=== PATIENT | male | born 1985 | race Caucasian/White ===

== ENCOUNTER 2020-12-05 19:30 | Inpatient (IN) | payer OTHER ==
[2020-12-05 20:10] VITALS: BMI 40.2
[2020-12-05] MEDS ORDERED: Ondansetron ODT 4 MG TAB PO PRN (21:41)
[2020-12-05] MEDS ORDERED: Acetaminophen 325 MG TAB PO PRN (21:41)
[2020-12-05] MEDS: Nicotine 14 MG PATCH TD SCH (22:20)
[2020-12-05] MEDS: Lactated Ringer's 1,000 ML IV SCH (22:20)
[2020-12-05] MEDS: Morphine 2 MG/ML VIAL SLOW IVP PRN (22:31)
[2020-12-06] MEDS: Lactated Ringer's 1,000 ML IV SCH ×5 (05:10→20:16)
[2020-12-06] MEDS: Morphine 2 MG/ML VIAL SLOW IVP PRN ×2 (05:43→09:51)
[2020-12-06 06:28] LABS: #Eosinphils 0.4 thou/uL (0.0-0.7); #Lymphocytes 2.2 thou/uL (1.20-3.40); #Monocytes 0.6 thou/uL (0.11-0.59); #Neutrophils 2.9 thou/uL (1.40-6.50); %Basophils 0.1 % (0.0-1.0); %Eosinophils 6.3 % (0.0-10.0); %Lymphocytes 36.5 % (21.0-51.0); %Monocytes 9.4 % (0.0-10.0); %Neutrophils 47.6 % (42.0-75.0); Hemoglobin 14.7 g/dL (14.0-18.0); Mean Corpuscular HGB CONC 35.2 g/dL (32.0-36.0); Mean Corpuscular Hemoglobin 32.2 pg (27.0-31.0); Mean Corpuscular Volume 91.4 fL (78.0-98.0); Mean Platelet Volume 8.5 fL (7.4-10.4); Platelet Count 201 thou/uL (130-400); RBC Distribution Width 11.5 % (11.5-14.5); Red Blood Cell (RBC) Count 4.56 mill/uL (4.70-6.10); White Blood Cell (WBC) Count 6.1 thou/uL (4.8-10.8)
[2020-12-06 06:54] LABS: ALT (SGPT) 25 U/L (8-55); AST (SGOT) 11 U/L (5-34); Albumin 3.5 g/dL (3.5-5.0); Alkaline Phosphatase 68 U/L (40-110); Anion Gap 12 mmol/L (10-20); BUN (Urea Nitrogen) 13 mg/dL (8.9-20.6); Bilirubin, Total 0.7 mg/dL (0.2-1.2); Calc. Creatinine Clearance 222 mL/min (70-130); Calcium 8.7 mg/dL (7.8-10.44); Carbon Dioxide 24 mmol/L (22-29); Chloride 104 mmol/L (98-107); Globulin 2.2 g/dL (2.4-3.5); Glucose 96 mg/dL (70-105); Potassium 3.6 mmol/L (3.5-5.1); Protein, Total 5.7 g/dL (6.0-8.3); Sodium 136 mmol/L (136-145)
[2020-12-06] MEDS: Losartan 25 MG TAB PO SCH (07:57)
[2020-12-06] MEDS ORDERED: Pantoprazole 40 MG VIAL IVP SCH (09:00)
[2020-12-06] MEDS ORDERED: Ketorolac Tromethamine 30 MG/ML VIAL IVP PRN (12:08)
[2020-12-06] MEDS: Nicotine 14 MG PATCH TD SCH (21:00)
[2020-12-07] MEDS: Lactated Ringer's 1,000 ML IV SCH ×2 (03:00→10:22)
[2020-12-07] MEDS ORDERED: Ketamine 50 MG/ML (10ML VIAL) ONE (07:07)
[2020-12-07 07:21] LABS: #Eosinphils 0.4 thou/uL (0.0-0.7); #Lymphocytes 1.7 thou/uL (1.20-3.40); #Monocytes 0.5 thou/uL (0.11-0.59); #Neutrophils 2.3 thou/uL (1.40-6.50); %Basophils 0.3 % (0.0-1.0); %Eosinophils 7.7 % (0.0-10.0); %Lymphocytes 34.4 % (21.0-51.0); %Monocytes 9.6 % (0.0-10.0); %Neutrophils 47.9 % (42.0-75.0); Mean Corpuscular HGB CONC 35.2 g/dL (32.0-36.0); Mean Corpuscular Hemoglobin 31.9 pg (27.0-31.0); Mean Corpuscular Volume 90.6 fL (78.0-98.0); Mean Platelet Volume 8.3 fL (7.4-10.4); Platelet Count 171 thou/uL (130-400); RBC Distribution Width 11.2 % (11.5-14.5); Red Blood Cell (RBC) Count 4.07 mill/uL (4.70-6.10); White Blood Cell (WBC) Count 4.9 thou/uL (4.8-10.8)
[2020-12-07] MEDS ORDERED: PROPOFOL 200 MG/20 ML VIAL ONE (07:22)
[2020-12-07 07:34] LABS: ALT (SGPT) 21 U/L (8-55); AST (SGOT) 12 U/L (5-34); Albumin 3.3 g/dL (3.5-5.0); Alkaline Phosphatase 62 U/L (40-110); Anion Gap 11 mmol/L (10-20); BUN (Urea Nitrogen) 12 mg/dL (8.9-20.6); Bilirubin, Total 0.5 mg/dL (0.2-1.2); Calc. Creatinine Clearance 233 mL/min (70-130); Calcium 8.6 mg/dL (7.8-10.44); Carbon Dioxide 24 mmol/L (22-29); Chloride 108 mmol/L (98-107); Glucose 90 mg/dL (70-105); Potassium 3.4 mmol/L (3.5-5.1); Protein, Total 5.3 g/dL (6.0-8.3); Sodium 140 mmol/L (136-145)
[2020-12-07] MEDS ORDERED: Potassium Chloride 20 MEQ TAB PO SCH (08:00)
[2020-12-07] MEDS: Losartan 25 MG TAB PO SCH (08:59)
[2020-12-07] MEDS ORDERED: Cholecalciferol 1,000 UNITS (25 MCG) TAB PO SCH (09:00)
[2020-12-07] MEDS ORDERED: Azithromycin 250 MG TAB PO SCH (09:00)
[2020-12-07] MEDS ORDERED: Loratadine 10 MG TAB PO SCH (09:00)
[2020-12-07] MEDS ORDERED: Multivit, Therapeutic 1 TAB PO SCH (09:00)
[2020-12-07] MEDS ORDERED: Ascorbic Acid 500 mg Chewable Tablet PO SCH (09:00)
[2020-12-07] MEDS ORDERED: Lisdexamfetamine Dimesylate [Vyvanse] 40 MG Capsule PO SCH (09:00)
[2020-12-07 14:46] VITALS: BP 130/81; TEMP 98.4
== END 2020-12-07 14:51 | disposition home or self-care (01) | DRG 392 ==
LOC: T4-B 19:30 → OBSVTOIN 12-06 15:23
PROVIDERS: ADMIT Family Medicine; ATTEND Family Medicine
PROC: 0DB78ZX Excision of Stomach, Pylorus, Via Natural or Artificial Opening Endoscopic, Diagnostic (ICD-10-PCS; principal; 2020-12-06)
DX: K29.80 Duodenitis without bleeding (principal); Z20.822 Contact with and (suspected) exposure to COVID-19; I10 Essential (primary) hypertension; F17.210 Nicotine dependence, cigarettes, uncomplicated; K21.9 Gastro-esophageal reflux disease without esophagitis; K58.0 Irritable bowel syndrome with diarrhea; Z79.899 Other long term (current) drug therapy; Z90.49 Acquired absence of other specified parts of digestive tract; Z80.9 Family history of malignant neoplasm, unspecified; Z82.49 Family history of ischemic heart disease and other diseases of the circulatory system
CPT/HCPCS: 36415; 80053; 83630; 85025; 87045; 87046; 87077; 87081; 87324; 87427; 87449; 88305; 88312; 96374; 96375; C9113; G0378; J1885; J2270; J2704